=== PATIENT | female | born 1970 | race Two or more races ===

== ENCOUNTER 2022-10-10 23:52 | Emergency (ER) | payer OTHER ==
[~2022-10-10] VITALS: Ht 152.4 cm; Wt 68.9 kg
[2022-10-11] MEDS ORDERED: COZAAR25 MG (00:22)
[2022-10-11] MEDS ORDERED: TOPROL XL50 M1 (00:23)
[2022-10-11] MEDS ORDERED: PEPCID40 MG PO (05:51)
[2022-10-11] MEDS ORDERED: ONDANSETRON ODT4 MG PO (05:51)
== END 2022-10-11 05:57 ==
LOC: ER 23:52
DX: J21.9 Acute bronchiolitis, unspecified (principal); I10 Essential (primary) hypertension